=== PATIENT | female | born 1990 | race Caucasian/White ===

== ENCOUNTER 2024-02-15 16:40 | Emergency (ER) | payer OTHER, SELFPAY ==
[2024-02-15 18:05] LABS: ALT/SGPT 19 U/L (13-56); Absolute Basophils 0.1 K/uL (0-0.5); Absolute Eosinophils 0.1 K/uL (0-0.5); Absolute Lymphocytes (CBC) 2.5 K/uL (0.7-4.9); Absolute Monocytes 0.6 K/uL (0.1-1.3); Absolute Neutrophil 6.2 K/uL (1.8-8.0); Albumin 3.7 g/dL (3.4-5.0); Alkaline Phosphatase 76 U/L (45-117); Anion Gap 8.5 mEq/L (5.0-15.0); BUN Blood Urea Nitrogen 12 mg/dL (7-18); Basophils % 0.6 % (0-1.3); Bicarbonate 26 mEq/L (21-32); Bilirubin Total 0.2 mg/dL (0.2-1.0); Eosinophils % 0.6 % (0-4.4); Globulin 3.7 g/dL (2.3-3.5); Glomerular Filtration Rate 95 ml/min (=/>90); Glucose Level 130 mg/dL (74-106); Hematocrit 37.8 % (36.0-45.0); Hemoglobin 13.1 g/dL (12.0-15.0); Lymphocytes % 26.9 % (15.3-44.8); MCH 32.2 pg (27.0-35.0); MCHC 34.7 g/dL (32.0-36.0); MCV 92.8 fL (80-100); MPV 6.8 fL (7.6-11.3); Monocytes % 6.3 % (3.3-12.3); Neutrophils % 65.6 % (41.7-73.7); Nucleated Red Blood Cells % 0.1 % (0-0); PT Prothrombin Time 11.5 SECONDS (9.4-12.5); PTT, Activated Partial Thromb 30.8 SECONDS (24.3-36.9); Platelets 401 thou/uL (152-406); Potassium 3.5 mEq/L (3.5-5.1); Protein, Total 7.4 g/dL (6.4-8.2); Protime INR 1.05; RBC Red Blood Cell Count 4.07 M/uL (3.86-4.86); Sodium Level 138 mEq/L (136-145)
[2024-02-15 18:06] LABS: AST/SGOT < 10 U/L (15-37); Bilirubin Direct < 0.2 mg/dL (0-0.2)
[2024-02-15 18:21] LABS: Specific Gravity 1.007 (1.005-1.030); Urine Bilirubin NEGATIVE (Negative); Urine Blood Negative (Negative); Urine Clarity Clear (Clear); Urine Color Colorless (Yellow); Urine Glucose NEGATIVE (Negative); Urine Ketones NEGATIVE (Negative); Urine Microscopic Reflex YN NO UMIC; Urine Nitrite NEGATIVE (Negative); Urine Protein NEGATIVE (Negative); Urine Urobilinogen Normal (Normal); Urine pH 6.5 (5.0-7.0)
[2024-02-15] MEDS ORDERED: LORAZEPAM 1 MG TABLET ONE (18:23)
[2024-02-15] MEDS ORDERED: NICOTINE 21 MG/PAT TD ONE (18:23)
[2024-02-15 18:24] LABS: Specific Gravity 1.007 (1.005-1.030)
[2024-02-15 18:30] LABS: Barbiturates NEGATIVE (NEGATIVE); Benzodiazepines NEGATIVE (NEGATIVE); Cocaine NEGATIVE (NEGATIVE); METHAMPHETAM NEGATIVE (NEGATIVE); Methadone NEGATIVE (NEGATIVE); Opiates NEGATIVE (NEGATIVE); Phencyclidine NEGATIVE (NEGATIVE); THC Cannibis POSITIVE (NEGATIVE)
--- NOTE | 2024-02-15 21:35 | ER ---
Nurse's Notes [facility] Name: Winnie Estevez Age: 33 yrs Sex: Female : 1990 Arrival Date: 02/15/2024 Time: 16:40 Bed 18 Private MD: Diagnosis: Suicidal ideations;Auditory hallucinations Presentation: 02/14 17:27 Chief complaint: Patient states: 3 DAYS HAS BEEN HAVING FEELINGS OF "HOPELESSNESS" DUE db TO LIVING WITH DAD WHO IS SCHIZOPHRENIC, BIPOLAR AND LIVES IN A SMALL TRAILER. GOING THROUGH A DIVORCE. STATES IS HERE BECAUSE WANTS HELP. HAS BEEN OFF PSYCH MEDS, HYDROXIZINE FOR MONTHS. STOPPED METH 6 MONTHS AGO AND HAS BEEN SOBER. DENIES USING DRUGS. HAS SUPERFICIAL ABRASIONS FROM HURTING SELF 3 DAYS AGO. MOM IS WITH PT. 17:27 Method Of Arrival: Ambulatory db 17:27 Coronavirus screen: Client denies travel out of the [place] in the last 14 days. At this db time, the client does not indicate any symptoms associated with coronavirus-19. Ebola Screen: Patient negative for fever greater than or equal to 101.5 degrees Fahrenheit, and additional compatible Ebola Virus Disease symptoms Patient denies exposure to infectious person. Patient denies travel to an Ebola-affected area in the 21 days before illness onset. No symptoms or risks identified at this time. Initial Sepsis Screen: Does the patient meet any 2 criteria? No. Patient's initial sepsis screen is negative. Does the patient have a suspected source of infection? No. Patient's initial sepsis screen is negative. Risk Assessment: Do you want to hurt yourself or someone else? Patient reports no desire to harm self or others. Onset of symptoms was February 12, 2024. 17:27 Acuity: HALLIE 2 db Triage Assessment: 17:27 General: Appears in no apparent distress. comfortable, Behavior is calm, cooperative, db appropriate for age. Pain: Denies pain. EENT: No deficits noted. No signs and/or symptoms were reported regarding the EENT system. Neuro: No deficits noted. Level of Consciousness is awake, alert, obeys commands, Oriented to person, place, time, situation. 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 - Infectious Disease History:: Denies. - Social history:: Smoking status: Patient reports the use of cigarette tobacco products, smokes one-half pack cigarettes per day. Screenin:54 [facility] ED Fall Risk Assessment (Adult) History of falling in the last 3 months, db including since admission No falls in past 3 months (0 pts) Confusion or Disorientation No (0 pts) Intoxicated or Sedated No (0 pts) Impaired Gait No (0 pts) Mobility Assist Device Used No (0 pt) Altered Elimination No (0 pt) Score/Fall Risk Level 0 - 2 = Low Risk Oriented to surroundings, Maintained a safe environment. Abuse screen: Denies threats or abuse. Denies injuries from another. Nutritional screening: No deficits noted. Tuberculosis screening: No symptoms or risk factors identified. Assessment: 17:13 Reassessment: PATIENT FOUND IN ROOM. NO TRIAGE AND NO HANDOFF. db 17:53 Reassessment: Patient appears in no apparent distress at this time. Patient and/or db family updated on plan of care and expected duration. Pain level reassessed. Patient is alert, oriented x 3, equal unlabored respirations, skin warm/dry/pink. PT MOM IS AT BEDSIDE. PT IS COOPERATIVE AND WANTS HELP. 18:00 Reassessment: Patient appears in no apparent distress at this time. Patient and/or db family updated on plan of care and expected duration. Pain level reassessed. Patient is alert, oriented x 3, equal unlabored respirations, skin warm/dry/pink. 19:30 Reassessment: Patient appears in no apparent distress at this time. Patient and/or tm6 family updated on plan of care and expected duration. Pain level reassessed. Patient is alert, oriented x 3, equal unlabored respirations, skin warm/dry/pink. 20:19 Reassessment: [facility] at bedside. tm6 21:34 Reassessment: patient resting in bed. Family at bedside. tm6 22:40 Reassessment: patient in bed with eyes closed. tm6 23:04 Reassessment: nurse to nurse given to Manjit at [facility]. tm6 23:33 Reassessment: snack provided to patient. tm6 02/15 00:00 Reassessment: patient picked up by [facility]IL[facility]. tm6 Psych: 02/14 17:20 [place] Suicide Severity Screening: In the past month, have you wished you were db or wished you could go to sleep and not wake up? Patient responds "No." "In the past month, have you actually had any thoughts of killing yourself?" Patient responds "no." "In your lifetime, have you ever done anything, started to do anything, or prepared to do anything to end your life?" Patient responds "yes." Patient reports suicidal intent occurred greater than 3 months prior. Subjective: Patient's mood is hopeless, Delusions are denied, Hallucinations are denied Having thoughts of DENIES. Objective: Patient is cooperative, Speech is normal. Interventions: Removed personal items and placed in bag. Patient placed in hospital gown. Searched person for dangerous items. Urine collected and sent for urine drug test. Patient reassessed during use of restraints. Patient is physically safe. Safety Checks: Personal items have been removed. Door is open. Visitors are present. Pt denies substance abuse. Commitment: Patient will be a voluntary commitment. 19:00 [place] Suicide Severity Screening: In the past month, have you wished you were tm6 or wished you could go to sleep and not wake up? Patient responds "yes." Based off the client's responses additional C-SSRS screening is required. "In the past month, have you actually had any thoughts of killing yourself?" Patient responds "no." "In your lifetime, have you ever done anything, started to do anything, or prepared to do anything to end your life?" Patient responds "yes." Patient reports suicidal intent occurred greater than 3 months prior. Subjective: Patient's mood is hopeless, Delusions are denied, Hallucinations are auditory, Having thoughts of suicide. Objective: Patient is cooperative, Speech is normal, Affect is appropriate, Patient has mutilated themselves by superficial cuts to ankle. Safety Checks: Door is open. Visitors are present. Pt denies substance abuse. Vital Signs: 17:27 BP 130 / 85; Pulse 84; Resp 18; Temp 98.4; Pulse Ox 100% ; Weight 74.84 kg; Height 4 db ft. 10 in. ; 02/15 00:07 BP 125 / 79; Pulse 81; Resp 16; Pulse Ox 98% on R/A; kmf 02/14 17:27 Body Mass Index 34.48 (74.84 kg, 147.32 cm) db ED Course: 02/14 16:44 Patient arrived in ED. ra3 16:53 Steffi Chavez FNP-C is [facility]. kb 16:53 Theo Gonzáles MD is Attending Physician. kb 17:11 Nica Robertson, RN is Primary Nurse. db 17:27 Arm band placed on Patient placed in an exam room. db 17:40 Inserted saline lock: 20 gauge in right antecubital area, using aseptic technique. db Blood collected. 17:50 Triage completed. db 17:54 EKG done, by ED staff, reviewed by Steffi OAKES. db 18:32 contacted [facility] to have pt evaluated. bd 19:03 Patient has correct armband on for positive identification. Bed in low position. Call db light in reach. Side rails up X 1. Sitter at bedside. Warm blanket given. Pillow given. 19:30 Hank Stephens RN is Primary Nurse. tm6 20:04 [facility] arrived to consult with patient. vk 21:59 Patients chart was faxed to the following facilities : [facility], [facility]. 22:04 Patient denied to [facility] due to being filled to capacity. vk 23:41 patient was accepted to [facility] to transport. vk 02/15 00:00 Provided Education on: need for transfer. tm6 00:00 No provider procedures requiring assistance completed. IV discontinued, intact, tm6 bleeding controlled, No redness/swelling at site. Pressure dressing applied. Administered Medications: 02/14 18: Drug: LORazepam PO 1 mg PO once Route: PO; db 18:27 Drug: Nicoderm CQ Transdermal Patch 21 mg/24 hr 21 mg Transdermal once Route: db Transdermal; Site: affected area; Medication: 19:03 VIS not applicable for this client. db Outcome: 21:34 ER care complete, transfer ordered by . kb 02/15 00:00 Transferred by ground EMS tm6 Condition: stable Instructed on the need for transfer, 00:07 Patient left the ED. tm6 Signatures: Steffi Chavez FNP-C FNP-Ckb Dirrim, Barbara bd Nica Robertson, JUNIOR RN Elizabeth Jacinto Tawney, RN RN tm6 Rimma Robbins ra3 Vandana Peres
--- NOTE | 2024-02-15 21:35 | EDPHYS ---
Physician Documentation [facility] Name: Winnie Estevez Age: 33 yrs Sex: Female : 1990 Arrival Date: 02/15/2024 Time: 16:40 Bed 18 Private MD: ED Physician Theo Gonzáles HPI: 02/14 18:16 This 33 yrs old Female presents to ER via Ambulatory with complaints of Psych Problem, kb Suicidal Ideation. 18:16 Pt is a 33 year old female who presents for "a psychotic break." States she has been kb off of meth for 6 months and stopped her psych medications a few months ago. STates she has been having a sense of hopelessness, dream states where she has difficulty knowing what is real and what is not. States she was staying with her father, but ran away on Tuesday because she felt like she needed to get away. Also cut her leg on Tuesday because she wanted to know what it felt like. States she is not necessarily suicidal, but has had thoughts on and off. Pt is staying with mother now, called [facility] and was told to come to the ER for evaluation and that we would have them come see her here. . 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 - Infectious Disease History:: Denies. - Social history:: Smoking status: Patient reports the use of cigarette tobacco products, smokes one-half pack cigarettes per day. ROS: 18:15 Constitutional: As per HPI kb Exam: 18:15 Constitutional: This is a well developed, well nourished patient who is awake, alert, kb and in no acute distress. Head/Face: Normocephalic, atraumatic. ENT: Moist Mucous membranes Cardiovascular: Regular rate Respiratory: Respirations even and unlabored. No increased work of breathing. Talking in full sentences Abdomen/GI: Soft, non-tender. No distention Skin: Warm, dry with normal turgor. Normal color. MS/ Extremity: Pulses equal, no cyanosis. Neurovascular intact. Full, normal range of motion. Neuro: Awake and alert, GCS 15, oriented to person, place, time, and situation. Moves all extremities. Normal gait. 18:43 ECG was reviewed by the Attending Physician. kb Vital Signs: 17:27 BP 130 / 85; Pulse 84; Resp 18; Temp 98.4; Pulse Ox 100% ; Weight 74.84 kg; Height 4 db ft. 10 in. ; 02/15 00:07 BP 125 / 79; Pulse 81; Resp 16; Pulse Ox 98% on R/A; kmf 02/14 17:27 Body Mass Index 34.48 (74.84 kg, 147.32 cm) db MDM: 02/14 16:53 Patient medically screened. kb 18:16 Differential diagnosis: drug withdrawal. acute psychotic break, depression, acute kb stress reaction. Data reviewed: vital signs, nurses notes. Historians other than the Patient: Parent: mother. 21:32 Consideration of Admission/Observation Escalation of care including kb admission/observation considered. pt will be transferred for inpatient psych. Counseling: I had a detailed discussion with the patient and/or guardian regarding the historical points, exam findings, and any diagnostic results supporting the discharge/admit diagnosis, lab results, the need to transfer to another facility, [facility] does not immediately have the required specialist. ED course: [facility] recommends inpatient. 23:35 Management of patient was discussed with the following: Behavioral Health Provider: Pt kb accepted to [facility] without conference by Dr Gonzalez. . 02/14 17:11 Order name: Acetaminophen; Complete Time: 18:07 02/14 17:11 Order name: Basic Metabolic Panel; Complete Time: 18:07 02/14 17:11 Order name: CBC with Diff; Complete Time: 18:08 02/14 17:11 Order name: ETOH Level; Complete Time: 18:08 02/14 17:11 Order name: Hepatic Function; Complete Time: 18:07 02/14 17:11 Order name: PT-INR; Complete Time: 18:07 02/14 17:11 Order name: Test, Urine; Complete Time: 18:27 02/14 17:11 Order name: Ptt, Activated; Complete Time: 18:07 02/14 17:11 Order name: Salicylate; Complete Time: 18:34 02/14 17:11 Order name: Urinalysis w/ reflexes; Complete Time: 18:24 02/14 17:11 Order name: Urine Drug Screen; Complete Time: 18:34 kb 02/14 17:11 Order name: EKG; Complete Time: 17:11 kb 02/14 17:11 Order name: EKG - Nurse/Tech; Complete Time: 17:54 kb 02/14 17:11 Order name: IV Saline Lock; Complete Time: 17:54 kb 02/14 17:11 Order name: Labs collected and sent; Complete Time: 17:54 kb 02/14 17:11 Order name: Suicide Screening ([place]); Complete Time: 17:54 kb EC:43 Rate is 84 beats/min. Rhythm is regular. QRS [place] is Normal. [place] interval is normal at kb 134 msec. QRS interval is normal at 80 msec. QT interval is normal at 434 msec. Administered Medications: 18:27 Drug: LORazepam PO 1 mg PO once Route: PO; db 18:27 Drug: Nicoderm CQ Transdermal Patch 21 mg/24 hr 21 mg Transdermal once Route: db Transdermal; Site: affected area; Disposition Summary: 02/15/24 21:34 Transfer Ordered Notes: Transfer Location: Psych Facility kb Reason: Higher level of care kb Condition: Stable kb Problem: new kb Symptoms: are unchanged kb Accepting Physician: Dr Gonzalez(02/16/24 00:07) tm6 Diagnosis - Suicidal ideations kb - Auditory hallucinations kb Forms: - Medication Reconciliation Form kb - SBAR form kb Addendum: 02/17/2024 07:30 Co-signature as Attending Physician, Theo Gonzáles MD I reviewed the patient's care r n provided by the Advanced Practice Provider and agree with the diagnosis and treatment plan. Signatures: Dispatcher [employer] EDSteffi Redmond, FOREST RESOURCE SPECIALIST-C FOREST RESOURCE SPECIALIST-Ckb Theo Gonzáles MD MD rn Benton, Danielle, RN RN db Masterson, Tawney, RN RN tm6 Corrections: (The following items were deleted from the chart) 02/14 17:11 17:11 ACETAMINOPHEN+C.LAB.BRZ ordered. EDMS EDMS 17:11 17:11 BASIC METABOLIC PANEL+C.LAB.BRZ ordered. EDMS EDMS 17:11 17:11 CBC+H.LAB.BRZ ordered. EDMS EDMS 17:11 17:11 ETHANOL+C.LAB.BRZ ordered. EDMS EDMS 17:11 17:11 HEPATIC FUNCTION+C.LAB.BRZ ordered. EDMS EDMS 17:11 17:11 PROTIME (+INR)+COAG.LAB.BRZ ordered. EDMS EDMS 17:11 17:11 Test, Urine+UC.LAB.BRZ ordered. EDMS EDMS 17:11 17:11 PTT, ACTIVATED+COAG.LAB.BRZ ordered. EDMS EDMS 17:11 17:11 SALICYLATE+C.LAB.BRZ ordered. EDMS EDMS 17:11 17:11 Urinalysis+U.LAB.BRZ ordered. EDMS EDMS 17:11 17:11 URINE DRUG SCREEN+UC.LAB.BRZ ordered. EDMS EDMS 18:21 18:16 Pt is a 33 year old female who presents for "a psychotic break." States she has kb been off of meth for 6 months and stopped her psych medications a few months ago. STates she has been having a sense of hopelessness, dream states where she has difficulty knowing what is real and what is not. States she was staying with her father, but ran away on Tuesday because she felt like she needed to get away. Also cut her leg on Tuesday because she wanted to know what it felt like. States she is not necessarily suicidal, but has had thoughts on and off. . ap 23:36 21:34 Dr ap de souza 02/15 00:07 02/14 23:36 Dr Carlos de souza tm6
[2024-02-16 00:26] VITALS: BP 125/79; TEMP 98.4; O2SAT 98
--- NOTE | 2024-02-16 14:07 | EKG ---
Test Date: 2024-02-15 Test Time: 17:41:43 Medical Record Consultant: JAY MEASUREMENT RESULTS: Intervals: Rate: 84 NC: 134 QRSD: 80 QT: 368 QTc: 434 [place]: P: 54 NC: 134 QRS: 61 T: 67 INTERPRETIVE STATEMENTS: Normal sinus rhythm Normal ECG No previous ECG available for comparison Electronically Signed On 02-16-24 14:06:30 CDT by Jamie Moraes
== END 2024-02-16 00:07 ==
LOC: ER 16:40
DX: R45.851 Suicidal ideations (principal); R44.0 Auditory hallucinations; F17.210 Nicotine dependence, cigarettes, uncomplicated
CPT/HCPCS: 36415; 80048; 80076; 80143; 80179; 80307; 81003; 81025; 82077; 85025; 85610; 85730; 93005; 99285